=== PATIENT | male | born 1970 | race African-American/Black ===

== ENCOUNTER 2016-11-18 19:26 | Emergency (ER) | payer SELFPAY ==
[~2016-11-18] VITALS: Ht 167.6 cm; Wt 65.8 kg
[2016-11-18 19:54] VITALS: BP 164/98
== END 2016-11-18 22:45 | disposition home or self-care (01) ==
LOC: ER 19:28
DX: S33.5XXA Sprain of ligaments of lumbar spine, initial encounter (principal); M79.1 Myalgia; F17.210 Nicotine dependence, cigarettes, uncomplicated; F12.10 Cannabis abuse, uncomplicated; X58.XXXA Exposure to other specified factors, initial encounter; Y93.89 Activity, other specified; Y99.8 Other external cause status; Y92.89 Other specified places as the place of occurrence of the external cause
CPT/HCPCS: 72100

== ENCOUNTER 2017-05-04 05:41 | Emergency (ER) | payer MEDICAID ==
[~2017-05-04] VITALS: Ht 167.6 cm; Wt 68.0 kg
[2017-05-04 06:46] LABS: Basophils # (auto) 0 uL; Basophils % (auto) 0.3 % (0.0-2.0); Eosinophils # (auto) 0 uL; Eosinophils % (auto) 0.4 % (0.0-7.0); Hematocrit 48.1 % (41.0-53.0); Hemoglobin 16.2 g/dL (13.5-17.5); Lymphocytes # (auto) 0.5 uL; Lymphocytes % (auto) 4.3 % (10.0-50.0); Mean Corpuscular Hemoglobin 31.9 pg (28.0-32.0); Mean Corpuscular Hgb Conc. 33.7 g/dL (32.0-36.0); Mean Corpuscular Volume 94.7 fL (80.0-100.0); Monocytes # (auto) 0.7 uL; Monocytes % (auto) 6.7 % (0.0-12.0); Neutrophils # (auto) 9.4 uL; Neutrophils % (auto) 88.3 % (37.0-80.0); Platelet Count (auto) 243 10^3/uL (140-450); Red Blood Cells 5.08 10^6/uL (4.5-5.90); Red Cell Distribution Width 14.2 % (11.8-14.3); White Blood Cell 10.7 10^3/uL (4.4-10.8)
[2017-05-04 07:03] LABS: Albumin 3.6 g/dL (3.4-5.0); BUN/Creatinine Ratio 6.6; Calcium 9.1 mg/dL (8.5-10.1); Magnesium 2.6 mg/dL (1.6-2.6); Potassium 3.8 mmol/L (3.5-5.1)
[2017-05-04 07:06] LABS: Bilirubin, Total 0.4 mg/dL (0.2-1.0); Total Protein 8.2 g/dL (6.4-8.2)
[2017-05-04 08:57] VITALS: BP 132/90
[2017-05-04] MEDS ORDERED: cefTRIAXone SOD 1,000 MG VL IM ONE (09:00)
[2017-05-04] MEDS ORDERED: ONDANSETRON ODT 4 MG TAB PO ONE (09:30)
== END 2017-05-04 09:36 | disposition home or self-care (01) ==
LOC: ER 05:41
DX: J20.9 Acute bronchitis, unspecified (principal); J02.9 Acute pharyngitis, unspecified; F17.210 Nicotine dependence, cigarettes, uncomplicated
CPT/HCPCS: 36415; 71046; 80053; 83735; 85025; 96372; 99285; J0696; Q0162

== ENCOUNTER 2020-08-22 20:28 | Emergency (ER) | payer MEDICAID ==
[~2020-08-22] VITALS: Ht 167.6 cm; Wt 65.8 kg
[2020-08-23 02:00] VITALS: BP 155/106
== END 2020-08-23 03:16 | disposition home or self-care (01) ==
LOC: ER 20:30
DX: J02.8 Acute pharyngitis due to other specified organisms (principal); F17.210 Nicotine dependence, cigarettes, uncomplicated; F12.10 Cannabis abuse, uncomplicated
CPT/HCPCS: 70490

== ENCOUNTER 2022-10-05 00:45 | Emergency (ER) | payer MEDICAID ==
[~2022-10-05] VITALS: Ht 167.6 cm; Wt 60.8 kg
[2022-10-05 04:35] VITALS: BP 136/98; PULSE 95; RESP 18; TEMP 99.1; O2SAT 99
== END 2022-10-05 04:34 | disposition home or self-care (01) ==
LOC: ER 00:48
DX: H02.845 Edema of left lower eyelid (principal); H02.842 Edema of right lower eyelid; F17.210 Nicotine dependence, cigarettes, uncomplicated